=== PATIENT | female | born 1980 | race Caucasian/White ===

== ENCOUNTER 2019-01-01 20:17 | Emergency (ER) | payer OTHER ==
[2019-01-01 20:26] VITALS: BP 126/84; PULSE 97; TEMP 98.3; BMI 21.7
[2019-01-01 21:32] LABS: BASO % 0.5 % (0-2.0); EOS % 1.2 % (0-4.5); HEMATOCRIT 37.7 % (32.4-45.2); HEMOGLOBIN 12.9 GM/dl (10.7-15.3); LYMPH % 29.2 % (8-40); MCH 29.9 pg (25.7-33.7); MCHC 34.2 g/dl (32.0-36.0); MEAN CELL VOLUME 87.6 fl (80-96); MEAN PLT VOLUME 7.5 fl (7.5-11.1); MONO % 7.7 % (3.8-10.2); NEUT % 61.4 % (42.8-82.8); PLATELET COUNT 213 K/MM3 (134-434); RBC 4.31 M/mm3 (3.60-5.2); RDW 11.5 % (11.6-15.6)
[2019-01-01 21:39] LABS: ALBUMIN 3.9 g/dl (3.4-5.0); BILIRUBIN,TOTAL 0.7 mg/dl (0.2-1); CALCIUM 8.5 mg/dl (8.5-10); CREATININE 0.7 mg/dl (0.55-1.3); POTASSIUM 3.6 mmol/L (3.5-5.1); TOT PROT 6.2 g/dl (6.4-8.2)
--- NOTE | 2019-01-02 03:10 | PDOC ---
Documentation entered by Miguelina Clifton SCRIBE, acting as scribe for Ashly Branch MD. Ashly Branch MD: This documentation has been prepared by the Etienne houston Nirvannie, SCRIBE, under my direction and personally reviewed by me in its entirety. I confirm that the documentation accurately reflects all work, treatment, procedures, and medical decision making performed by me. History of Present Illness - General Chief Complaint: Chest Pain Stated Complaint: CHEST PAIN Time Seen by Provider: 01/01/19 20:37 History Source: Patient Exam Limitations: No Limitations - History of Present Illness Initial Comments: 01/01/19 22:19 The patient is a 38 year old female with no significant past medical history, who presents to the emergency department with nonexertional, nonpleuritic, dull left-sided chest pain described as a tightness. As per patient, her symptoms onset while at work. She notes upon her arrival home after making dinner she had an episode of lightheadedness and weakness thus she attempted to lay down without relief, prompting her arrival to the ED. She notes associated abdominal bloating and reflux which she notes occurs when she is under significant stress. While in the ED, patient notes her symptoms are alleviated and is asymptomatic. Cardiac risk factors: Family history of early coronary artery disease; all other risk factors negative She denies any long distance traveling or lower extremity pain/swelling. She denies any palpitations, shortness of breath, diaphoresis, nausea, or vomiting. She denies recent fevers, chills, headache or dizziness. She denies recent diarrhea or constipation. She denies recent dysuria, frequency, urgency or hematuria. Allergies: NKDA Social History: Daily glass of wine with dinner. No history of smoking. Primary Care Physician: Dr. Stack ([facility]) Past History - Past Medical History Allergies/Adverse Reactions: Allergies Allergy/AdvReac Type Severity Reaction Status Date / Time No Known Allergies Allergy Verified 01/01/19 20:19 Home Medications: Ambulatory Orders Aspirin [Aspirin EC] 325 mg PO DAILY 01/01/19 COPD: No - Psycho Social/Smoking Cessation Hx Smoking History: Never smoked Have you smoked in the past 12 months: No Information on smoking cessation initiated: No Hx Alcohol Use: (occasional) Review of Systems - Review of Systems Able to Perform ROS?: Yes Comments:: 01/01/19 22:19 CONSTITUTIONAL: Absent: fever, chills, diaphoresis, generalized weakness, malaise, loss of appetite HEENT: Absent: rhinorrhea, nasal congestion, throat pain, throat swelling, difficulty swallowing, mouth swelling, ear pain, eye pain, visual Changes CARDIOVASCULAR: Present: Chest pain (resolved). Absent: syncope, palpitations, irregular heart rate, lightheadedness, peripheral edema RESPIRATORY: Absent: cough, shortness of breath, dyspnea with exertion, orthopnea, wheezing, stridor, hemoptysis GASTROINTESTINAL: Absent: abdominal pain, abdominal distension, nausea, vomiting, diarrhea, constipation, melena, hematochezia GENITOURINARY: Absent: dysuria, frequency, urgency, hesitancy, hematuria, flank pain, genital pain MUSCULOSKELETAL: Absent: myalgia, arthralgia, joint swelling SKIN: Absent: rash, itching, pallor HEMATOLOGIC/IMMUNOLOGIC: Absent: easy bleeding, easy bruising, lymphadenopathy, frequent infections ENDOCRINE: Absent: unexplained weight gain, unexplained weight loss, heat intolerance, cold intolerance NEUROLOGIC: Absent: headache, focal weakness or paresthesias, dizziness, unsteady gait, seizure, mental status changes, bladder or bowel incontinence PSYCHIATRIC: Absent: anxiety, depression, suicidal or homicidal ideation, hallucinations. All Other Systems: Reviewed and Negative *Physical Exam - Vital Signs Last Vital Signs Temp Pulse Resp BP Pulse Ox 98.3 F 97 H 18 126/84 100 01/01/19 20:17 01/01/19 20:17 01/01/19 20:17 01/01/19 20:17 01/01/19 20:17 - Physical Exam Comments: 01/01/19 22:19 HEAD: Normal with no signs of trauma. EYES: Pupils equal, round and reactive to light, extraocular movements intact, sclera anicteric, conjunctiva clear with no pallor. ENT: Ears normal, nares patent, oropharynx clear without exudates. Moist mucous membranes. NECK: Normal range of motion, supple without lymphadenopathy, JVD, or masses. LUNGS: Breath sounds equal, clear to auscultation bilaterally. No wheeze/ crackles. HEART: Regular rate and rhythm, normal S1 and S2 without murmur or rub. ABDOMEN: Soft/nontender/nondistended. BS wnl. No guarding or rebound. No palpable masses. No hepatosplenomegaly. EXTREMITIES: Normal range of motion, no edema. No clubbing or cyanosis. No cords, erythema, or tenderness. NEUROLOGICAL: Cranial nerves II through XII grossly intact. Normal speech. PSYCH: Normal mood, normal affect. SKIN: Warm, Dry, normal turgor, no rashes or lesions noted. Twelve-lead electrocardiogram is performed and interpreted by me: Normal sinus rhythm at 74 bpm; axis, intervals and waveforms are all normal. No evidence of acute ST or T wave abnormalities. No evidence of acute cardiac arrhythmia. No previous EKG tracing available for comparison ED Treatment Course - LABORATORY CBC & Chemistry Diagram: 01/01/19 21:15 01/01/19 21:15 - ADDITIONAL ORDERS Additional order review: Laboratory Results 01/01/19 01/01/19 01/01/19 21:15 21:15 20:55 Sodium 137 Potassium 3.6 Chloride 104 Carbon Dioxide 25 Anion Gap 8 BUN 13.0 Creatinine 0.7 Est GFR (CKD-EPI)AfAm 126.49 Est GFR (CKD-EPI)NonAf 109.14 Random Glucose 97 Calcium 8.5 Total Bilirubin 0.7 AST 15 ALT 17 Alkaline Phosphatase 52 Creatine Kinase 66 Troponin I < 0.03 Total Protein 6.2 L Albumin 3.9 Urine HCG, Qual Negative 01/01/19 21:15 RBC 4.31 MCV 87.6 MCHC 34.2 RDW 11.5 L MPV 7.5 Neutrophils % 61.4 Lymphocytes % 29.2 Monocytes % 7.7 Eosinophils % 1.2 Basophils % 0.5 Medical Decision Making - Medical Decision Making As noted above, this 38-year-old woman with no significant past medical history and one risk factor for coronary artery disease (family history) presents with a few hour history of substernal/left anterior chest pressure. No associated symptoms. Patient reports that chest pressure sensation has been significantly improved since onset. Although never treated for, the patient notes that she has had symptoms consistent with GERD for years. She states that she controls symptoms of this by watching her diet closely. She has no history of taking any acid reduction medications. Exam as noted As noted above, twelve-lead electrocardiograms performed and shows no sign of acute ischemia. CBC/PGU/chemistry profile and troponin level drawn: All laboratory evaluation is essentially normal. Results discussed with the patient. The patient was essentially pain-free and without new symptoms. Patient was discharged with instructions to return to the emergency room she has recurrent pain or develops shortness of breath/lightheadedness She should rest and avoid strenuous activities for the next few days. She should plan on following up with her general medical doctor within the next 3-4 days Discharge - Discharge Information Problems reviewed: Yes Clinical Impression/Diagnosis: Atypical chest pain Condition: Stable Disposition: HOME - Follow up/Referral - Patient Discharge Instructions Patient Printed Discharge Instructions: DI for Atypical Chest Pain Additional Instructions: rest; avoid strenuous activities for the next 3-4 days Elevate head at night as discussed Follow-up with your general doctor within the next 5 days as discussed Return to ER immediately if you have recurrent chest pain or experience shortness of breath/persistent lightheadedness - Post Discharge Activity
--- NOTE | 2019-01-03 08:38 | EKG ---
Test Reason : Blood Pressure : / mmHG Vent. Rate : 074 BPM Atrial Rate : 074 BPM P-R Int : 116 ms QRS Dur : 084 ms QT Int : 356 ms P-R-T Axes : 047 075 045 degrees QTc Int : 395 ms NORMAL SINUS RHYTHM NORMAL ECG NO PREVIOUS ECGS AVAILABLE Confirmed by Cathy Hopkins ([id number]) on 01/03/2019 8:38:24 AM Referred By: MD BONILLA Confirmed By:Cathy Hopkins
== END 2019-01-01 22:29 | disposition home or self-care (01) ==
LOC: FER 20:17
DX: R07.89 Other chest pain (principal)
CPT/HCPCS: 36415; 80053; 82550; 84484; 84703; 85025; 93005; 99284-25